=== PATIENT | female | born 1995 | race Two or more races ===

== ENCOUNTER 2020-03-27 12:04 | Emergency (ER) | payer MEDICAID, OTHER ==
[~2020-03-27] VITALS: Ht 154.9 cm; Wt 65.8 kg
[2020-03-27 12:20] VITALS: BP 107/71
[2020-03-27 13:32] LABS: Urine Bacteria FEW /hpf (None Seen); Urine Blood Negative /uL (Negative); Urine Hyaline Cast FEW /lpf (0 - 2); Urine Mucus MODERATE (None Seen); Urine Specific Gravity 1.029 (1.001-1.035); Urine WBC 96 /hpf (0 - 5)
[2020-03-27] MEDS ORDERED: ACETAMINOPHEN 325 MG TAB PO ONE (13:45)
== END 2020-03-27 13:51 | disposition home or self-care (01) ==
LOC: ER 12:04
DX: O23.43 Unspecified infection of urinary tract in pregnancy, third trimester (principal); G44.209 Tension-type headache, unspecified, not intractable; Z3A.34 34 weeks gestation of pregnancy
CPT/HCPCS: 70450; 81001; 93005

== ENCOUNTER 2020-04-26 16:05 | Inpatient (IN) | payer MEDICAID ==
[~2020-04-26] VITALS: Ht 30.5 cm; Wt 0.5 kg
[2020-04-26] MEDS ORDERED: PREN-96 PO (16:51)
[2020-04-26] MEDS ORDERED: PROMETHAZINE HCL 25 MG/ML 1ML IV PRN (17:00)
[2020-04-26] MEDS ORDERED: BUTORPHANOL TARTRATE 2 MG/1 ML VIAL IV PRN (17:00)
[2020-04-26] MEDS ORDERED: LACT. RINGERS/OXYTOCIN 20UNITS 1,000 ML IV ONE (17:00)
[2020-04-26] MEDS ORDERED: LIDOCAINE 2%HCL (LOCAL ANESTH.) INJ 20ML MDV IJ ONE (17:00)
[2020-04-26] MEDS ORDERED: LACTATED RINGER'S 1,000 ML IV SCH (17:00)
[2020-04-26] MEDS ORDERED: PHISODERM TOP SOLN 240ML BTL TOP PRN (17:00)
[2020-04-26] MEDS ORDERED: WITCH HAZEL-GLYCERIN PAD TOP PRN (17:00)
[2020-04-26] MEDS ORDERED: DERMOPLAST 60ML BOTTLE TOP PRN (17:00)
[2020-04-26] MEDS ORDERED: PENICILLIN G POT 5MIL/D5 50ML 50 ML IV ONE ×2 (17:15→17:20)
[2020-04-26 19:27] LABS: Albumin 2.7 g/dL (3.4-5.0); Calcium 8.9 mg/dL (8.5-10.1); Potassium 3.6 mmol/L (3.5-5.1)
[2020-04-26 19:28] LABS: BUN/Creatinine Ratio 11.4
[2020-04-26 19:29] LABS: Basophils # (auto) 0 10 ^3/uL (0-0.2); Basophils % (auto) 0.5 % (0.0-2.0); Eosinophils # (auto) 0 10 ^3/uL (0-0.8); Eosinophils % (auto) 0.3 % (0.0-7.0); Hematocrit 32.6 % (36.0-46.0); Hemoglobin 10.3 g/dL (12.2-16.2); Lymphocytes # (auto) 1.5 10 ^3/uL (0.4-5.4); Lymphocytes % (auto) 21.5 % (10.0-50.0); Mean Corpuscular Hgb Conc. 31.6 g/dL (32.0-36.0); Mean Corpuscular Volume 79.1 fL (80.0-100.0); Monocytes # (auto) 0.5 10 ^3/uL (0-1.3); Monocytes % (auto) 7.2 % (0.0-12.0); Neutrophils # (auto) 4.9 10 ^3/uL (1.6-8.6); Neutrophils % (auto) 70.5 % (37.0-80.0); Nucleated Red Blood Cells % 0.7 %; Platelet Count (auto) 379 10^3/uL (140-450); Red Blood Cells 4.13 10^6/uL (4.0-5.20); Red Cell Distribution Width 19.8 % (11.8-14.3)
[2020-04-26] MEDS ORDERED: ePHEDrine SULFATE 50 MG/ML AMP IV ONE ×2 (19:30→21:15)
[2020-04-26] MEDS ORDERED: LACTATED RINGER'S 500 ML IV ONE (19:30)
[2020-04-26] MEDS ORDERED: LACTATED RINGER'S 1,000 ML IV ONE (19:30)
[2020-04-26] MEDS ORDERED: ROPIVACAINE HCL 200 ML EPI SCH ×2 (19:30→20:30)
[2020-04-26] MEDS ORDERED: fentaNYL CITRATE 100 MCG/2 ML VL IV ONE (19:30)
[2020-04-26] MEDS ORDERED: NALOXONE HCL 0.4 MG/ML VIAL IV ONE ×2 (19:30→21:15)
[2020-04-26 19:36] LABS: Bilirubin, Total 0.4 mg/dL (0.2-1.0); Total Protein 6.9 g/dL (6.4-8.2)
[2020-04-26 19:38] LABS: Urine Bacteria FEW /hpf (None Seen); Urine Blood Negative /uL (Negative); Urine Hyaline Cast FEW /lpf (0 - 2); Urine Mucus FEW (None Seen); Urine Specific Gravity 1.023 (1.001-1.035); Urine WBC 13 /hpf (0 - 5)
[2020-04-26 19:54] LABS: Alcohol, Urine < 3.0 mg/dL (0-10); Amphetamine Screen, Urine NEGATIVE (NEGATIVE); Barbiturate Scree,Urine NEGATIVE (NEGATIVE); Benzodiazephine Screen, Urine NEGATIVE (NEGATIVE); Cannabinoid Screen, Urine NEGATIVE (NEGATIVE); Cocaine Screen, Urine NEGATIVE (NEGATIVE); Opiate Scree,Urine NEGATIVE (NEGATIVE); Phencyclidine Screen, Urine NEGATIVE (NEGATIVE)
[2020-04-26 20:06] LABS: INR 0.96 (0.9-1.15); Partial Thromboplastin Time 23.7 sec (23.0-31.2)
[2020-04-26] MEDS ORDERED: SODIUM CHLORIDE 0.9% 500 ML IV PRN (21:15)
[2020-04-26] MEDS ORDERED: ROPIVACAINE HCL 100 ML EPI SCH (21:15)
[2020-04-26] MEDS ORDERED: PENICILLIN G POTASSIUM 2,500,000 UNITS in D5W 5% 50 ML IV SCH (21:15)
[2020-04-26] MEDS ORDERED: ACETAMINOPHEN 325 MG TAB PO PRN (22:45)
[2020-04-26] MEDS: IBUPROFEN 600 MG TAB PO PRN (23:39)
--- NOTE | 2020-04-26 23:50 | NUR ---
EPIDURAL CATHETER REMOVED AT THIS TIME, BLUE TIP FULLY INTACT AND VISUALIZED BY PT AND THIS RN. PT TOLERATED PROCEDURE WELL.
[2020-04-27] VITALS (8 sets, daily range): BP systolic 93–105; BP diastolic 54–74
--- NOTE | 2020-04-27 00:15 | NUR ---
Ambulation: Patient OOB with standby assistance by RN. Patient ambulated to bathroom with steady gait. Patient able to void 900ML without difficulty. [facility] teaching provided with returned demonstration by patient. Clean gown provided and bed linen changed. Patient ambulated back to bed with steady gait and no distress noted.
[2020-04-27] MEDS: IBUPROFEN 600 MG TAB PO PRN ×2 (07:58→22:22)
[2020-04-28 02:39] VITALS: BP 101/62
[2020-04-28 05:08] LABS: RPR Non Reactive (Non Reactive)
[2020-04-28 07:00] VITALS: BP 112/64
[2020-04-28 11:08] VITALS: BP 113/68
--- NOTE | 2020-04-28 11:10 | NUR ---
Discharge: Discharge instructions given as ordered. Pt encouraged to follow up with [facility] as instructed. All questions and concerns addressed. Patient verbalized understanding. Patient received Save your life handout with instruction and verbalized understanding, patient signed and received a copy. Medication reconciliation completed and copy given to patient. All required/requested vaccines given and copies of vaccinations given to patient. Patient encouraged to prepare to depart unit.
--- NOTE | 2020-04-28 12:10 | NUR ---
Discharge: Patient ambulates to vehicle with all personal belongings, accompanied by staff and family member. No distress noted at time of departure, no adverse changes in status since initial assessment.
== END 2020-04-28 12:10 | disposition home or self-care (01) | DRG 560 ==
LOC: LDRP 16:05 → OBSVTOIN 16:45 → LDRP 04-27 00:13
PROVIDERS: ADMIT Obstetrics & Gynecology; ATTEND Obstetrics & Gynecology
PROC: 10E0XZZ Delivery of Products of Conception, External Approach (ICD-10-PCS; principal; 2020-04-26)
PROC: 3E0R3BZ Introduction of Anesthetic Agent into Spinal Canal, Percutaneous Approach (ICD-10-PCS; 2020-04-26)
PROC: 00HU33Z Insertion of Infusion Device into Spinal Canal, Percutaneous Approach (ICD-10-PCS; 2020-04-26)
DX: O99.824 Streptococcus B carrier state complicating childbirth (principal); Z20.828 Contact with and (suspected) exposure to other viral communicable diseases; Z37.0 Single live birth; Z3A.40 40 weeks gestation of pregnancy
CPT/HCPCS: 36415; 59025; 59409; 62282; 80053; 80307; 81001; 81002; 85025; 85610; 85730; 86592; 86850; 86900; 86901; 87426; 94760; 96360; 96361; 96365; 96366; G0378; J2540; J2590; J7060